=== PATIENT | female | born 1960 | race African-American/Black ===

== ENCOUNTER 2021-10-24 22:51 | Emergency (ER) | payer MEDICARE, MEDICAID ==
[~2021-10-24] VITALS: Ht 167.6 cm; Wt 105.0 kg
[~2021-10-24 22:51] MED LIST: ASCO100T2; CYAN1TAB43; DULO30CA2; FOLI-43; MULTIVITAMIN; PRAS25TA; PROT20
[2021-10-25] MEDS ORDERED: ONDANSETRON HCL 4MG/2ML INJ IV STA (05:58)
[2021-10-25] MEDS ORDERED: SODIUM CHLORIDE 0.9% 1,000 ML IV ONE (06:00)
[2021-10-25 06:13] LABS: CHLORIDE 96 mEq/L (98-107)
[2021-10-25 06:36] LABS: BASOPHILS % 0.4 % (0.0-2.0); HEMATOCRIT. 36.7 % (36.0-48.0); HEMOGLOBIN. 12.4 g/dL (12.0-16.0); LYMPHOCYTES % 12.3 % (20.0-50.0); MEAN CORPUSCULAR HEMOGLOBIN 35.9 pg (28.0-32.0); MEAN CORPUSCULAR VOLUME 106.1 fL (81.0-99.0); MEAN PLATELET VOLUME 9.2 fl (7.4-10.4); MONOCYTES % 11.2 % (2.0-8.0); NEUTROPHILS % 76.1 % (40.0-76.0); PLATELET 153 x1000/uL (130-400); RED BLOOD CELL COUNT 3.46 mill/uL (4.2-5.4); RED CELL DISTRIBUTION WIDTH 16.5 % (11.6-14.6)
[2021-10-25] MEDS ORDERED: POTASSIUM CHLORIDE 20MEQ TABLET SR PO ONE (08:15)
[2021-10-25] MEDS ORDERED: ONDA4TAB5 MT (08:18)
[2021-10-25 08:30] VITALS: BP 155/90
== END 2021-10-25 08:30 | disposition home or self-care (01) ==
LOC: ER 22:51
DX: R53.1 Weakness (principal); E87.6 Hypokalemia; R11.2 Nausea with vomiting, unspecified; I10 Essential (primary) hypertension; M19.90 Unspecified osteoarthritis, unspecified site; Z86.73 Personal history of transient ischemic attack (TIA), and cerebral infarction without residual deficits
CPT/HCPCS: 36415; 80053; 83690; 85025; 93005; 96361; 96374; 99284; J2405; J7030

== ENCOUNTER 2021-12-05 11:24 | Emergency (ER) | payer MEDICARE, MEDICAID ==
[~2021-12-05] VITALS: Ht 165.1 cm; Wt 73.0 kg
[~2021-12-05 11:24] MED LIST changes: +ONDA4TAB5 MT
[2021-12-05] MEDS ORDERED: SODIUM CHLORIDE 0.9% 1,000 ML IV ONE (11:45)
[2021-12-05 12:12] LABS: BASOPHILS % 1.2 % (0.0-2.0); EOSINOPHILS % 1.1 % (0.0-5.0); HEMATOCRIT. 33.9 % (36.0-48.0); HEMOGLOBIN. 11.7 g/dL (12.0-16.0); LYMPHOCYTES % 18.4 % (20.0-50.0); MEAN CORPUSCULAR HEMOGLOBIN 35.1 pg (28.0-32.0); MEAN CORPUSCULAR VOLUME 101.3 fL (81.0-99.0); MEAN PLATELET VOLUME 8.2 fl (7.4-10.4); MONOCYTES % 8.2 % (2.0-8.0); NEUTROPHILS % 71.1 % (40.0-76.0); PLATELET 279 x1000/uL (130-400); RED BLOOD CELL COUNT 3.35 mill/uL (4.2-5.4); RED CELL DISTRIBUTION WIDTH 14.9 % (11.6-14.6)
[2021-12-05 12:24] LABS: CHLORIDE 96 mEq/L (98-107)
[2021-12-05] MEDS ORDERED: POTASSIUM CHLORIDE INJ 40 MEQ in DEXT 5% WATER 250 ML IV ONE (13:00)
[2021-12-05] MEDS: KCL 20MEQ/100ML X 2 FOR TOTAL KCL 40MEQ/200ML IV SCH ×2 (14:19→16:09)
[2021-12-05 14:32] LABS: CLARITY URINE CLEAR (CLEAR); COLOR URINE YELLOW (YELLOW); KETONES URINE NEGATIVE (NEGATIVE); LEUKOCYTE ESTERASE URINE NEGATIVE (NEGATIVE); NITRITE URINE NEGATIVE (NEGATIVE); OCCULT BLOOD URINE NEGATIVE (NEGATIVE); PH URINE 6.5 (4.5-8.0); PROTEIN URINE NEGATIVE (NEGATIVE); SPECIFIC GRAVITY URINE 1.009 (1.005-1.030); UROBILINOGEN URINE 0.2 E.U./dL (0.2-1.0)
[2021-12-05] MEDS ORDERED: ONDA4TAB5 MT (15:29)
[2021-12-05 16:15] VITALS: BP 131/88
[2021-12-05] MEDS ORDERED: POTASSIUM-SODIUM PHOSPHATE POWDER PACKET PO ONE (16:30)
== END 2021-12-05 16:43 | disposition home or self-care (01) ==
LOC: ER 11:24
DX: E87.6 Hypokalemia (principal); I10 Essential (primary) hypertension; Z86.73 Personal history of transient ischemic attack (TIA), and cerebral infarction without residual deficits
CPT/HCPCS: 36415; 71045; 80053; 81003; 83735; 84484; 85025; 93005; 96361; 96365; 99285; J3480; J7030

== ENCOUNTER 2023-03-15 14:59 | Emergency (ER) | payer MEDICARE, OTHER ==
[~2023-03-15] VITALS: Ht 165.1 cm; Wt 99.8 kg
[2023-03-15] MEDS ORDERED: SODIUM CHLORIDE 0.9% 1,000 ML IV ONE (15:30)
[2023-03-15 16:26] LABS: BASOPHILS % 1.1 % (0.0-2.0); EOSINOPHILS % 1.9 % (0.0-5.0); HEMATOCRIT. 35.9 % (36.0-48.0); HEMOGLOBIN. 11.9 g/dL (12.0-16.0); LYMPHOCYTES % 27.3 % (20.0-50.0); MEAN CORPUSCULAR HEMOGLOBIN 34.2 pg (28.0-32.0); MEAN CORPUSCULAR VOLUME 103.3 fL (81.0-99.0); MEAN PLATELET VOLUME 8.7 fl (7.4-10.4); MONOCYTES % 11.1 % (2.0-8.0); NEUTROPHILS % 58.6 % (40.0-76.0); PLATELET 194 x1000/uL (130-400); RED BLOOD CELL COUNT 3.47 mill/uL (4.2-5.4); RED CELL DISTRIBUTION WIDTH 14.3 % (11.6-14.6)
[2023-03-15 16:35] LABS: CHLORIDE 105 mEq/L (98-107)
[2023-03-15] MEDS ORDERED: POTASSIUM CHLORIDE 20MEQ/PACKET PO ONE (17:00)
[2023-03-15] MEDS ORDERED: KCL 10MEQ/50ML PREMIX 50 ML IV ONE (17:00)
[2023-03-15 19:41] LABS: CHLORIDE 110 mEq/L (98-107)
[2023-03-15 20:39] VITALS: BP 104/62
== END 2023-03-15 20:39 | disposition home or self-care (01) ==
LOC: ER 14:59
DX: R53.1 Weakness (principal); R05.9 Cough, unspecified; E11.9 Type 2 diabetes mellitus without complications; E78.00 Pure hypercholesterolemia, unspecified; I10 Essential (primary) hypertension; Z86.73 Personal history of transient ischemic attack (TIA), and cerebral infarction without residual deficits
CPT/HCPCS: 36415; 71045; 80048; 80053; 83880; 84484; 85025; 93005; 96360; 96361; 99291; J3480; J7030

== ENCOUNTER 2023-07-22 10:15 | Inpatient (IN) | payer OTHER ==
[~2023-07-22] VITALS: Ht 167.6 cm; Wt 88.2 kg
[~2023-07-22 10:15] MED LIST changes: -ASCO100T2; -CYAN1TAB43; +DONE5TAB33 PO; -DULO30CA2; +DULO60CA64 PO; -FOLI-43; +FOLI-43 PO; +GABA800T97 PO; +METH2.5T PO; -MULTIVITAMIN; -ONDA4TAB5 MT; +POTA10CA83 PO; -PRAS25TA; -PROT20; +SERT-422 PO
[2023-07-22 10:21] VITALS: O2SAT 100
[2023-07-22 10:59] LABS: BASOPHILS % 0.1 % (0.0-2.0); DIFFERENTIAL COMMENT 0; EOSINOPHILS % 0.1 % (0.0-5.0); HEMATOCRIT. 34.9 % (36.0-48.0); HEMOGLOBIN. 11.7 g/dL (12.0-16.0); LYMPHOCYTES % 8.5 % (20.0-50.0); MEAN CORPUSCULAR HEMOGLOBIN 32.5 pg (28.0-32.0); MEAN CORPUSCULAR HGB CONC 33.4 g/dL (31.0-37.0); MEAN CORPUSCULAR VOLUME 97.3 fL (81.0-99.0); MEAN PLATELET VOLUME 8.6 fl (7.4-10.4); MONOCYTES % 6.7 % (2.0-8.0); NEUTROPHILS % 84.6 % (40.0-76.0); PLATELET 198 x1000/uL (130-400); RED BLOOD CELL COUNT 3.59 mill/uL (4.2-5.4); RED CELL DISTRIBUTION WIDTH 14.3 % (11.6-14.6); WHITE BLOOD COUNT 11.7 x1000/uL (4.5-11.0)
[2023-07-22 11:07] LABS: INR 1.1; PROTHROMBIN TIME 12.1 sec (9.6-11.0)
[2023-07-22] MEDS ORDERED: ASPIRIN 325MG EC TABLET PO ONE (12:45)
[2023-07-22 17:00] VITALS: BP 155/88; PULSE 94; RESP 18; TEMP 97.7
[2023-07-22 17:11] VITALS: BP 155/88; PULSE 94; RESP 18; TEMP 97.7
[2023-07-22 18:34] LABS: CHLORIDE 91 mEq/L (98-107); INDEX HEMOLYSI 1 (1-3); INDEX ICTERIC 1 (1-4); INDEX LIPEMIC 1 (1-3); POTASSIUM 3.7 mEq/L (3.5-5.1); SODIUM 127 mEq/L (136-145)
[2023-07-22 18:42] LABS: ALANINE AMINOTRANSFERASE 20 IU/L (13-61); ALBUMIN 2.8 g/dL (3.4-5.0); ASPARTATE AMINOTRANSFERASE 26 IU/L (15-37); BILIRUBIN TOTAL 0.7 mg/dL (0.1-1.0); CALCIUM 8.7 mg/dL (8.5-10.1); CARBON DIOXIDE 19 mEq/L (21-32); CREATININE 0.5 mg/dL (0.6-1.3); ETHANOL BLOOD < 10 mg/dL (<10); GLUCOSE 72 mg/dL (70-105); PROTEIN TOTAL 7.7 g/dL (6.0-8.3); TROPONIN I HIGH SENSITIVITY 20 ng/L (<54); UREA NITROGEN BLOOD 16 mg/dL (7-21)
[2023-07-22 18:48] LABS: CLARITY URINE CLEAR (CLEAR); COLOR URINE DARK YELLOW (YELLOW); GLUCOSE URINE NEGATIVE (NEGATIVE); KETONES URINE TRACE (NEGATIVE); LEUKOCYTE ESTERASE URINE TRACE (NEGATIVE); NITRITE URINE NEGATIVE (NEGATIVE); OCCULT BLOOD URINE NEGATIVE (NEGATIVE); PROTEIN URINE TRACE (NEGATIVE); SPECIFIC GRAVITY URINE 1.027 (1.005-1.030)
[2023-07-22 18:51] LABS: SQUAMOUS EPITHELIAL CELL URINE NONE SEEN /lpf (RARE/1+); YEAST URINE NONE SEEN
[2023-07-22 19:03] LABS: WBC URINE 0-2 /hpf (0-2)
[2023-07-22 19:04] LABS: BACTERIA URINE TRACE
[2023-07-22 19:32] LABS: *AMPHETAMINES SCREEN URINE NEGATIVE (NEGATIVE); *BARBITURATES SCREEN URINE NEGATIVE (NEGATIVE); *BENZODIAZEPINES SCREEN URINE NEGATIVE (NEGATIVE); *COCAINE SCREEN URINE NEGATIVE (NEGATIVE); CANNABINOID URINE SCREEN NEGATIVE (NEGATIVE); ECSTASY MDMA SCREEN URINE NEGATIVE (NEGATIVE); OPIATES URINE SCREEN PRESUMTIVE POSITIVE (NEGATIVE); PHENCYCLIDINE URINE SCREEN NEGATIVE (NEGATIVE)
[2023-07-22 20:00] VITALS: BP 169/87; PULSE 94; RESP 20; TEMP 97.2
[2023-07-22] MEDS ORDERED: LORAZEPAM 2MG/ML CPJ IV NR (21:30)
[2023-07-22] MEDS ORDERED: *PATIENT'S OWN MEDICATION STORAGE XX SCH (23:45)
[2023-07-23] VITALS: BP 146/88; PULSE 101; RESP 18; TEMP 96.8
[2023-07-23 04:00] VITALS: BP 151/82; PULSE 99; RESP 17; TEMP 97
[2023-07-23] MEDS ORDERED: CLONIDINE 0.1MG TABLET PO PRN (10:30)
[2023-07-23] MEDS ORDERED: SODIUM CHLORIDE 0.9% 1,000 ML IV SCH (10:30)
[2023-07-23] MEDS ORDERED: ASPIRIN 81MG TABLET PO SCH (10:30)
[2023-07-23] MEDS ORDERED: ACETAMINOPHEN 325MG TABLET PO PRN (10:30)
[2023-07-23] MEDS: ASPIRIN 81MG TABLET PO SCH (10:46)
[2023-07-23] MEDS: CLOPIDOGREL 75MG TABLET PO SCH (10:46)
[2023-07-23] MEDS: AMLODIPINE 5MG TABLET PO SCH (10:46)
[2023-07-23 12:00] VITALS: BP 162/94; PULSE 91; RESP 20; TEMP 98.1
[2023-07-23 12:05] LABS: CHLORIDE 90 mEq/L (98-107); INDEX HEMOLYSI 1 (1-3); INDEX ICTERIC 1 (1-4); INDEX LIPEMIC 1 (1-3); POTASSIUM 3.6 mEq/L (3.5-5.1); SODIUM 129 mEq/L (136-145)
[2023-07-23 12:14] LABS: CALCIUM 8.7 mg/dL (8.5-10.1); CARBON DIOXIDE 27 mEq/L (21-32); CHOLESTEROL 146 mg/dL (<200); CREATININE 0.4 mg/dL (0.6-1.3); GLUCOSE 90 mg/dL (70-105); HDL CHOLESTEROL 50 mg/dL (40-59); LDL CHOLESTEROL 82 mg/dL (5-100); TRIGLYCERIDE 128 mg/dL (0-150); UREA NITROGEN BLOOD 14 mg/dL (7-21)
[2023-07-23 16:00] VITALS: BP 119/93; PULSE 90; RESP 19; TEMP 97.4
[2023-07-23 16:53] LABS: CREATINE KINASE MB FRACTION 2.9 ng/mL (0.5-3.6)
[2023-07-23] MEDS ORDERED: DEXTROSE 50% WATER 50ML SYRINGE IV PRN ×2 (18:15→18:45)
[2023-07-23 20:00] VITALS: BP 118/79; PULSE 94; RESP 18; TEMP 96.7
[2023-07-23] MEDS: BLOOD SUGAR DIAGNOSTIC STRIP TEST SCH (21:16)
[2023-07-24] VITALS: BP 133/74; PULSE 94; RESP 18; TEMP 96
[2023-07-24] MEDS: BLOOD SUGAR DIAGNOSTIC STRIP TEST SCH ×4 (06:52→21:10)
[2023-07-24 08:00] VITALS: BP 140/89; PULSE 95; RESP 18; TEMP 97.9
[2023-07-24 08:42] LABS: CHLORIDE 90 mEq/L (98-107); INDEX HEMOLYSI 1 (1-3); INDEX ICTERIC 1 (1-4); INDEX LIPEMIC 1 (1-3); POTASSIUM 3.4 mEq/L (3.5-5.1); SODIUM 128 mEq/L (136-145)
[2023-07-24 08:54] LABS: CALCIUM 9.1 mg/dL (8.5-10.1); CARBON DIOXIDE 28 mEq/L (21-32); CHOLESTEROL 155 mg/dL (<200); CREATINE KINASE 310 IU/L (26-192); CREATINE KINASE MB FRACTION 5.7 ng/mL (0.5-3.6); CREATININE 0.4 mg/dL (0.6-1.3); GLUCOSE 85 mg/dL (70-105); HDL CHOLESTEROL 52 mg/dL (40-59); LDL CHOLESTEROL 79 mg/dL (5-100); TRIGLYCERIDE 141 mg/dL (0-150); TROPONIN I HIGH SENSITIVITY 20 ng/L (<54); UREA NITROGEN BLOOD 19 mg/dL (7-21)
[2023-07-24] MEDS: ASPIRIN 81MG TABLET PO SCH (09:35)
[2023-07-24] MEDS: CLOPIDOGREL 75MG TABLET PO SCH (09:35)
[2023-07-24] MEDS: AMLODIPINE 5MG TABLET PO SCH (09:36)
[2023-07-24] MEDS ORDERED: POTASSIUM CHLORIDE 20MEQ TABLET SR PO NR (11:00)
[2023-07-24 12:00] VITALS: BP 125/77; PULSE 92; RESP 19; TEMP 97.4
[2023-07-24 15:33] LABS: PHOSPHORUS 3.1 mg/dL (2.5-4.9)
[2023-07-24] MEDS: ACETAMINOPHEN 325MG TABLET PO PRN (15:59)
[2023-07-24 20:00] VITALS: BP 127/81; PULSE 104; RESP 19; TEMP 99
[2023-07-25] VITALS: BP 122/80; PULSE 104; RESP 20; TEMP 98.1
[2023-07-25] MEDS: ONDANSETRON HCL 4MG/2ML INJ IV PRN (00:55)
[2023-07-25 04:00] VITALS: BP 136/83; PULSE 99; RESP 20; TEMP 97.9
[2023-07-25] MEDS: BLOOD SUGAR DIAGNOSTIC STRIP TEST SCH ×4 (06:12→21:00)
[2023-07-25 07:44] LABS: HEMATOCRIT. 33.6 % (36.0-48.0); HEMOGLOBIN. 11.2 g/dL (12.0-16.0); MEAN CORPUSCULAR HEMOGLOBIN 32.4 pg (28.0-32.0); MEAN CORPUSCULAR HGB CONC 33.4 g/dL (31.0-37.0); MEAN CORPUSCULAR VOLUME 96.9 fL (81.0-99.0); MEAN PLATELET VOLUME 9.8 fl (7.4-10.4); PLATELET 174 x1000/uL (130-400); RED BLOOD CELL COUNT 3.46 mill/uL (4.2-5.4); RED CELL DISTRIBUTION WIDTH 14.5 % (11.6-14.6); WHITE BLOOD COUNT 14.2 x1000/uL (4.5-11.0)
[2023-07-25 08:07] LABS: DIFFERENTIAL COMMENT 1
[2023-07-25 08:31] VITALS: BP 104/74; PULSE 99; RESP 20; TEMP 99.2
[2023-07-25] MEDS: ASPIRIN 81MG TABLET PO SCH (08:33)
[2023-07-25] MEDS: CLOPIDOGREL 75MG TABLET PO SCH (08:33)
[2023-07-25] MEDS: AMLODIPINE 5MG TABLET PO SCH (08:33)
[2023-07-25] MEDS: ACETAMINOPHEN 325MG TABLET PO PRN (09:18)
[2023-07-25 09:38] LABS: CHLORIDE 93 mEq/L (98-107); INDEX HEMOLYSI 1 (1-3); INDEX ICTERIC 1 (1-4); INDEX LIPEMIC 1 (1-3); POTASSIUM 3.3 mEq/L (3.5-5.1); SODIUM 132 mEq/L (136-145)
[2023-07-25 09:59] LABS: CALCIUM 9.2 mg/dL (8.5-10.1); CARBON DIOXIDE 26 mEq/L (21-32); CREATININE 0.5 mg/dL (0.6-1.3); GLUCOSE 87 mg/dL (70-105); UREA NITROGEN BLOOD 24 mg/dL (7-21)
[2023-07-25] MEDS ORDERED: POTASSIUM CHLORIDE 20MEQ/PACKET PO NR (10:30)
[2023-07-25 10:53] LABS: PHOSPHORUS 2.5 mg/dL (2.5-4.9)
[2023-07-25 12:00] VITALS: BP 128/80; PULSE 100; RESP 20; TEMP 98
[2023-07-25] MEDS ORDERED: MENTHOL/LANOLIN/CALAMINE/ZN OX OINT 71GM TOP PRN (12:30)
[2023-07-25] MEDS: NYSTATIN POWDER 15GM TOP SCH ×2 (13:00→16:10)
[2023-07-25 14:38] LABS: NUCLEATED RED BLOOD CELLS 1 /100 WBC
[2023-07-25 14:39] LABS: PLATELET ESTIMATE NORMAL; TOXIC VACUOLATION FEW
[2023-07-25] MEDS ORDERED: MAGNESIUM 2 G PREMIX 50 ML IV NR (15:30)
[2023-07-25 15:51] VITALS: BP_SYST 124; BP_SYST 134; BP_DIAS 60; BP_DIAS 73; PULSE 70; PULSE 96; RESP 20; TEMP 97.8
[2023-07-25 18:18] LABS: INDEX HEMOLYSI 1 (1-3)
[2023-07-25 18:28] LABS: AMMONIA <10 uMol/L (<32)
[2023-07-25 20:00] VITALS: BP 154/94; PULSE 112; RESP 19; TEMP 97.9
[2023-07-25] MEDS ORDERED: VANCOMYCIN 1500MG in DEXTROSE 5% WATER 250ML IV NR (23:30)
[2023-07-26] VITALS (8 sets, daily range): BP systolic 94–134; BP diastolic 64–88; PULSE 89–106; RESP 18–31; TEMP 97.3–101
[2023-07-26] MEDS: PIPERACILLIN/TAZOBACTAM 3.375 G in DEXTROSE 5% WATER 50 ML IV SCH ×4 (00:18→21:50)
[2023-07-26] MEDS: BLOOD SUGAR DIAGNOSTIC STRIP TEST SCH ×5 (06:31→20:24)
[2023-07-26 06:41] LABS: BASOPHILS % 0.1 % (0.0-2.0); HEMATOCRIT. 30.2 % (36.0-48.0); HEMOGLOBIN. 10.2 g/dL (12.0-16.0); LYMPHOCYTES % 7.6 % (20.0-50.0); MEAN CORPUSCULAR HEMOGLOBIN 33.2 pg (28.0-32.0); MEAN CORPUSCULAR HGB CONC 33.9 g/dL (31.0-37.0); MEAN CORPUSCULAR VOLUME 97.9 fL (81.0-99.0); MEAN PLATELET VOLUME 9.2 fl (7.4-10.4); MONOCYTES % 7.4 % (2.0-8.0); NEUTROPHILS % 84.9 % (40.0-76.0); PLATELET 140 x1000/uL (130-400); RED BLOOD CELL COUNT 3.09 mill/uL (4.2-5.4); RED CELL DISTRIBUTION WIDTH 14.5 % (11.6-14.6)
[2023-07-26] MEDS: AMLODIPINE 5MG TABLET PO SCH (09:00)
[2023-07-26] MEDS: CLOPIDOGREL 75MG TABLET PO SCH (09:04)
[2023-07-26] MEDS: ASPIRIN 81MG TABLET PO SCH (09:04)
[2023-07-26] MEDS: NYSTATIN POWDER 15GM TOP SCH ×3 (09:05→17:38)
[2023-07-26] MEDS ORDERED: VANCOMYCIN 750MG PREMIX 150 ML IV SCH ×2 (09:15→15:00)
[2023-07-26] MEDS: ONDANSETRON HCL 4MG/2ML INJ IV PRN (09:16)
[2023-07-26 09:24] LABS: CHLORIDE 97 mEq/L (98-107); INDEX HEMOLYSI 1 (1-3); INDEX ICTERIC 1 (1-4); INDEX LIPEMIC 1 (1-3); SODIUM 136 mEq/L (136-145)
[2023-07-26 09:36] LABS: ALANINE AMINOTRANSFERASE 18 IU/L (13-61); ALBUMIN 2.6 g/dL (3.4-5.0); ASPARTATE AMINOTRANSFERASE 19 IU/L (15-37); BILIRUBIN DIRECT 0.4 mg/dL (0.0-0.2); BILIRUBIN TOTAL 1.1 mg/dL (0.1-1.0); CALCIUM 8.9 mg/dL (8.5-10.1); CARBON DIOXIDE 29 mEq/L (21-32); CREATININE 0.6 mg/dL (0.6-1.3); GLUCOSE 107 mg/dL (70-105); PROTEIN TOTAL 7.4 g/dL (6.0-8.3); UREA NITROGEN BLOOD 22 mg/dL (7-21)
[2023-07-26] MEDS: VANCOMYCIN 750MG PREMIX 150 ML IV SCH (13:42)
[2023-07-26] MEDS ORDERED: POTASSIUM CHLORIDE INJ 40 MEQ in DEXT 5% WATER 250 ML IV ONE (16:15)
[2023-07-26] MEDS: KCL 20MEQ/100ML X 2 FOR TOTAL KCL 40MEQ/200ML IV SCH ×2 (18:00→20:26)
[2023-07-26] MEDS: DEXT 5%/0.45% NACL KCL 20MEQ/L 1,000 ML IV SCH (21:51)
[2023-07-27] VITALS (13 sets, daily range): BP systolic 103–134; BP diastolic 66–75; PULSE 93–110; RESP 17–31; TEMP 96.7–99.3
[2023-07-27] MEDS: VANCOMYCIN 750MG PREMIX 150 ML IV SCH (00:33)
[2023-07-27] MEDS: PIPERACILLIN/TAZOBACTAM 3.375 G in DEXTROSE 5% WATER 50 ML IV SCH ×3 (05:16→21:21)
[2023-07-27 06:31] LABS: BASOPHILS % 0.2 % (0.0-2.0); DIFFERENTIAL COMMENT 0; EOSINOPHILS % 0.1 % (0.0-5.0); HEMATOCRIT. 29.5 % (36.0-48.0); LYMPHOCYTES % 8.3 % (20.0-50.0); MEAN CORPUSCULAR HEMOGLOBIN 33.2 pg (28.0-32.0); MEAN CORPUSCULAR HGB CONC 34.1 g/dL (31.0-37.0); MEAN CORPUSCULAR VOLUME 97.6 fL (81.0-99.0); MEAN PLATELET VOLUME 9.4 fl (7.4-10.4); MONOCYTES % 8.2 % (2.0-8.0); NEUTROPHILS % 83.2 % (40.0-76.0); PLATELET 98 x1000/uL (130-400); RED BLOOD CELL COUNT 3.02 mill/uL (4.2-5.4); RED CELL DISTRIBUTION WIDTH 14.7 % (11.6-14.6); WHITE BLOOD COUNT 12.7 x1000/uL (4.5-11.0)
[2023-07-27 06:39] LABS: POTASSIUM 3.3 mEq/L (3.5-5.1)
[2023-07-27 06:47] LABS: ALBUMIN 2.4 g/dL (3.4-5.0); BILIRUBIN DIRECT 0.3 mg/dL (0.0-0.2); BILIRUBIN TOTAL 0.8 mg/dL (0.1-1.0); CALCIUM 9.3 mg/dL (8.5-10.1); CREATININE 1.2 mg/dL (0.6-1.3); PROTEIN TOTAL 6.9 g/dL (6.0-8.3)
[2023-07-27] MEDS: BLOOD SUGAR DIAGNOSTIC STRIP TEST SCH ×4 (07:30→21:00)
[2023-07-27] MEDS: DEXT 5%/0.45% NACL KCL 20MEQ/L 1,000 ML IV SCH ×2 (08:29→20:29)
[2023-07-27] MEDS: NYSTATIN POWDER 15GM TOP SCH ×3 (08:31→17:00)
[2023-07-27] MEDS: SERTRALINE HCL 50MG TABLET PO SCH (08:56)
[2023-07-27] MEDS ORDERED: POTASSIUM CHLORIDE INJ 40 MEQ in DEXT 5% WATER 250 ML IV ONE (11:15)
[2023-07-27] MEDS: KCL 20MEQ/100ML X 2 FOR TOTAL KCL 40MEQ/200ML IV SCH ×2 (13:52→16:25)
[2023-07-27] MEDS ORDERED: NALOXONE HCL 0.4MG/ML VIAL IV PRN (14:45)
[2023-07-27] MEDS: MORPHINE SULFATE 2 MG/ML CPJ (NOT FOR IM USE) IV PRN (16:06)
[2023-07-27] MEDS: ONDANSETRON HCL 4MG/2ML INJ IV PRN (17:06)
[2023-07-28] VITALS (10 sets, daily range): BP systolic 100–131; BP diastolic 60–110; PULSE 94–112; RESP 18–26; TEMP 97–101.1
[2023-07-28] MEDS: ONDANSETRON HCL 4MG/2ML INJ IV PRN ×2 (02:34→09:51)
[2023-07-28] MEDS: MORPHINE SULFATE 2 MG/ML CPJ (NOT FOR IM USE) IV PRN (02:35)
[2023-07-28] MEDS: PIPERACILLIN/TAZOBACTAM 3.375 G in DEXTROSE 5% WATER 50 ML IV SCH ×3 (05:25→21:03)
[2023-07-28 06:05] LABS: HEMATOCRIT. 31.8 % (36.0-48.0); HEMOGLOBIN. 10.2 g/dL (12.0-16.0); MEAN CORPUSCULAR HEMOGLOBIN 31.8 pg (28.0-32.0); MEAN CORPUSCULAR HGB CONC 32.1 g/dL (31.0-37.0); MEAN CORPUSCULAR VOLUME 98.8 fL (81.0-99.0); MEAN PLATELET VOLUME 9.7 fl (7.4-10.4); PLATELET 85 x1000/uL (130-400); RED BLOOD CELL COUNT 3.22 mill/uL (4.2-5.4); RED CELL DISTRIBUTION WIDTH 14.7 % (11.6-14.6); WHITE BLOOD COUNT 31.2 x1000/uL (4.5-11.0)
[2023-07-28 06:06] LABS: DIFFERENTIAL COMMENT 1
[2023-07-28 07:07] LABS: POTASSIUM 4.1 mEq/L (3.5-5.1)
[2023-07-28 07:19] LABS: ALBUMIN 2.2 g/dL (3.4-5.0); BILIRUBIN DIRECT 0.4 mg/dL (0.0-0.2); BILIRUBIN TOTAL 1.2 mg/dL (0.1-1.0); CALCIUM 9.6 mg/dL (8.5-10.1); CREATININE 1.7 mg/dL (0.6-1.3); PROTEIN TOTAL 6.9 g/dL (6.0-8.3)
[2023-07-28] MEDS: BLOOD SUGAR DIAGNOSTIC STRIP TEST SCH ×4 (08:16→20:20)
[2023-07-28] MEDS: QUETIAPINE FUMARATE 25MG TABLET PO SCH (08:18)
[2023-07-28] MEDS: SERTRALINE HCL 50MG TABLET PO SCH (08:18)
[2023-07-28] MEDS: DEXT 5%/0.45% NACL KCL 20MEQ/L 1,000 ML IV SCH ×2 (09:46→22:00)
[2023-07-28] MEDS: NYSTATIN POWDER 15GM TOP SCH ×3 (09:47→17:20)
[2023-07-28 10:54] LABS: PLATELET ESTIMATE DECREASED
[2023-07-28 11:38] LABS: BG BASE EXCESS 1.2 mmol/L (-2.0-2.0); BG CARBOXYHEMOGLOBIN 0.3 % (0.5-1.5); BG DEOXYHEMOGLOBIN 6.4 % (0.0-5.0); BG FRACTION INSPIRED OXYGEN 28; BG HCO3 ACT 23.4 mmol/L (22.0-26.0); BG METHEMOGLOBIN 0.7 % (0.0-1.5); BG OXYGEN SATURATION 93.5 % (92.0-98.5); BG OXYHEMOGLOBIN 92.6 % (94.0-97.0); BG PCO2 29.3 mmHg (35.0-45.0); BG PO2 70.2 mmHg (75.0-100.0); BG SAMPLE SITE RIGHT RADIAL; BG TOTAL HEMOGLOBIN 10.8 g/dL (12.0-18.0); BG VENT MODE NASAL CANNULA
[2023-07-28] MEDS ORDERED: ACETAMINOPHEN 650MG SUPP RC PRN ×2 (15:45→16:15)
[2023-07-29] VITALS (9 sets, daily range): BP systolic 92–118; BP diastolic 60–94; PULSE 78–105; RESP 17–27; TEMP 97.4–99.4
[2023-07-29] MEDS ORDERED: VANCOMYCIN 750MG PREMIX 150 ML IV SCH (02:30)
[2023-07-29] MEDS ORDERED: MEROPENEM 500 MG in SODIUM CHLORIDE 0.9% 50 ML IV SCH (04:30)
[2023-07-29] MEDS: BLOOD SUGAR DIAGNOSTIC STRIP TEST SCH ×4 (07:22→21:59)
[2023-07-29] MEDS ORDERED: FUROSEMIDE 40MG/4ML VIAL IVP NR (08:15)
[2023-07-29] MEDS ORDERED: DIATR MEGLU/DIATRIZOATE SOLN 120ML ONE (08:43)
[2023-07-29] MEDS: SERTRALINE HCL 50MG TABLET PO SCH (09:00)
[2023-07-29] MEDS: NYSTATIN POWDER 15GM TOP SCH ×3 (09:00→17:43)
[2023-07-29 12:42] LABS: BG BASE EXCESS 1.4 mmol/L (-2.0-2.0); BG CARBOXYHEMOGLOBIN 0.3 % (0.5-1.5); BG DEOXYHEMOGLOBIN 5.1 % (0.0-5.0); BG FRACTION INSPIRED OXYGEN 28; BG HCO3 ACT 23.8 mmol/L (22.0-26.0); BG METHEMOGLOBIN 0.7 % (0.0-1.5); BG OXYGEN SATURATION 94.8 % (92.0-98.5); BG OXYHEMOGLOBIN 93.9 % (94.0-97.0); BG PCO2 29.9 mmHg (35.0-45.0); BG PH 7.518 (7.350-7.450); BG PO2 78.4 mmHg (75.0-100.0); BG SAMPLE SITE RIGHT RADIAL; BG TOTAL HEMOGLOBIN 10.3 g/dL (12.0-18.0); BG VENT MODE NASAL CANNULA
[2023-07-29] MEDS: DEXT 5%/0.45% NACL KCL 20MEQ/L 1,000 ML IV SCH ×2 (12:54→22:08)
[2023-07-29] MEDS: MEROPENEM 1000MG in NORMAL SALINE 100ML IV SCH ×2 (12:56→22:08)
[2023-07-29 13:14] LABS: HEMATOCRIT. 28.4 % (36.0-48.0); HEMOGLOBIN. 9.3 g/dL (12.0-16.0); MEAN CORPUSCULAR HEMOGLOBIN 32.4 pg (28.0-32.0); MEAN CORPUSCULAR HGB CONC 32.8 g/dL (31.0-37.0); MEAN CORPUSCULAR VOLUME 98.8 fL (81.0-99.0); MEAN PLATELET VOLUME 9.9 fl (7.4-10.4); PLATELET 94 x1000/uL (130-400); RED BLOOD CELL COUNT 2.88 mill/uL (4.2-5.4); RED CELL DISTRIBUTION WIDTH 14.6 % (11.6-14.6); WHITE BLOOD COUNT 16.3 x1000/uL (4.5-11.0)
[2023-07-29 13:20] LABS: DIFFERENTIAL COMMENT 1
[2023-07-29 13:57] LABS: POTASSIUM 3.3 mEq/L (3.5-5.1)
[2023-07-29 14:20] LABS: ALBUMIN 2.2 g/dL (3.4-5.0); BILIRUBIN DIRECT 0.2 mg/dL (0.0-0.2); BILIRUBIN TOTAL 0.5 mg/dL (0.1-1.0); CALCIUM 9.7 mg/dL (8.5-10.1); CREATININE 1.5 mg/dL (0.6-1.3); PROTEIN TOTAL 6.9 g/dL (6.0-8.3)
[2023-07-29 17:32] LABS: PLATELET ESTIMATE DECREASED
[2023-07-29] MEDS: QUETIAPINE FUMARATE 25MG TABLET PO SCH (20:02)
[2023-07-30] VITALS (30 sets, daily range): BP systolic 80–128; BP diastolic 55–84; PULSE 72–97; RESP 13–24; TEMP 97.6–98.2
[2023-07-30] MEDS: VANCOMYCIN 500MG PREMIX 100 ML IV SCH (05:36)
[2023-07-30 06:06] LABS: HEMATOCRIT. 31.5 % (36.0-48.0); MEAN CORPUSCULAR HEMOGLOBIN 32.2 pg (28.0-32.0); MEAN CORPUSCULAR HGB CONC 31.8 g/dL (31.0-37.0); MEAN CORPUSCULAR VOLUME 101.2 fL (81.0-99.0); MEAN PLATELET VOLUME 10.1 fl (7.4-10.4); PLATELET 100 x1000/uL (130-400); RED BLOOD CELL COUNT 3.11 mill/uL (4.2-5.4); RED CELL DISTRIBUTION WIDTH 14.5 % (11.6-14.6); WHITE BLOOD COUNT 17.1 x1000/uL (4.5-11.0)
[2023-07-30 06:27] LABS: DIFFERENTIAL COMMENT 1
[2023-07-30] MEDS: BLOOD SUGAR DIAGNOSTIC STRIP TEST SCH ×5 (07:30→21:00)
[2023-07-30] MEDS: QUETIAPINE FUMARATE 25MG TABLET PO SCH ×2 (09:00→21:00)
[2023-07-30] MEDS: SERTRALINE HCL 50MG TABLET PO SCH (09:00)
[2023-07-30 09:02] LABS: POTASSIUM 2.9 mEq/L (3.5-5.1)
[2023-07-30 09:14] LABS: CALCIUM 9.7 mg/dL (8.5-10.1); CREATININE 1.5 mg/dL (0.6-1.3)
[2023-07-30] MEDS: MEROPENEM 1000MG in NORMAL SALINE 100ML IV SCH ×2 (09:20→22:13)
[2023-07-30] MEDS: NYSTATIN POWDER 15GM TOP SCH ×3 (09:21→16:59)
[2023-07-30] MEDS ORDERED: POTASSIUM CHLORIDE 20MEQ/PACKET PO NR (10:00)
[2023-07-30] MEDS ORDERED: LEVETIRACETAM 500 MG in SODIUM CHLORIDE 0.9% 100 ML IV SCH (11:45)
[2023-07-30] MEDS: DEXT 5%/0.45% NACL KCL 20MEQ/L 1,000 ML IV SCH (11:59)
[2023-07-30 12:00] LABS: BG BASE EXCESS 2.4 mmol/L (-2.0-2.0); BG CARBOXYHEMOGLOBIN 0.2 % (0.5-1.5); BG DEOXYHEMOGLOBIN 6.3 % (0.0-5.0); BG FRACTION INSPIRED OXYGEN 21; BG HCO3 ACT 25.7 mmol/L (22.0-26.0); BG OXYGEN SATURATION 93.6 % (92.0-98.5); BG OXYHEMOGLOBIN 92.5 % (94.0-97.0); BG PCO2 34.9 mmHg (35.0-45.0); BG PH 7.485 (7.350-7.450); BG SAMPLE SITE LEFT RADIAL; BG TOTAL HEMOGLOBIN 10.4 g/dL (12.0-18.0); BG VENT MODE ROOM AIR
[2023-07-30] MEDS: LEVETIRACETAM 500MG PREMIX 100 ML IV SCH (12:05)
[2023-07-30 14:18] LABS: ATYPICAL LYMPHOCYTES 1; PLATELET ESTIMATE SLIGHTLY DECREASED
[2023-07-30] MEDS: METHYLPREDNISOLONE SOD SUCC 40MG/ML (ACT-O-VIAL) IV SCH ×2 (15:21→22:14)
[2023-07-30 15:39] LABS: LACTIC ACID 3.3 mmol/L (0.4-2.0)
[2023-07-30] MEDS: METOCLOPRAMIDE HCL 10MG/2ML VIAL IV SCH (17:10)
[2023-07-30 20:20] LABS: BG BASE EXCESS 1.1 mmol/L (-2.0-2.0); BG CARBOXYHEMOGLOBIN 0.2 % (0.5-1.5); BG DEOXYHEMOGLOBIN 3.7 % (0.0-5.0); BG FRACTION INSPIRED OXYGEN 28; BG HCO3 ACT 24.8 mmol/L (22.0-26.0); BG METHEMOGLOBIN 0.9 % (0.0-1.5); BG OXYGEN SATURATION 96.3 % (92.0-98.5); BG OXYHEMOGLOBIN 95.2 % (94.0-97.0); BG PCO2 35.6 mmHg (35.0-45.0); BG PO2 93.4 mmHg (75.0-100.0); BG SAMPLE SITE RIGHT RADIAL; BG TOTAL HEMOGLOBIN 10.7 g/dL (12.0-18.0); BG VENT MODE NASAL CANNULA
[2023-07-30 21:43] LABS: INDEX HEMOLYSI 1 (1-3)
[2023-07-30 21:55] LABS: AMMONIA < 10 uMol/L (<32)
[2023-07-31] VITALS (80 sets, daily range): BP systolic 70–172; BP diastolic 28–150; PULSE 75–122; RESP 14–27; TEMP 97.9–98.3
[2023-07-31] MEDS: LEVETIRACETAM 500MG PREMIX 100 ML IV SCH ×3 (00:07→22:25)
[2023-07-31] MEDS: DEXT 5%/0.45% NACL KCL 20MEQ/L 1,000 ML IV SCH ×2 (00:08→08:14)
[2023-07-31] MEDS: METOCLOPRAMIDE HCL 10MG/2ML VIAL IV SCH ×4 (00:14→17:56)
[2023-07-31] MEDS ORDERED: BISACODYL 10MG SUPP PR SCH (00:45)
[2023-07-31] MEDS: VANCOMYCIN 500MG PREMIX 100 ML IV SCH (05:54)
[2023-07-31 06:36] LABS: CHLORIDE 118 mEq/L (98-107); INDEX HEMOLYSI 3 (1-3); INDEX ICTERIC 1 (1-4); INDEX LIPEMIC 1 (1-3); POTASSIUM 4.3 mEq/L (3.5-5.1); SODIUM 148 mEq/L (136-145)
[2023-07-31 06:44] LABS: CALCIUM 9.1 mg/dL (8.5-10.1); CARBON DIOXIDE 20 mEq/L (21-32); CREATININE 1.1 mg/dL (0.6-1.3); GLUCOSE 130 mg/dL (70-105); UREA NITROGEN BLOOD 28 mg/dL (7-21)
[2023-07-31 07:53] LABS: CLARITY URINE CLEAR (CLEAR); COLOR URINE YELLOW (YELLOW); GLUCOSE URINE NEGATIVE (NEGATIVE); KETONES URINE TRACE (NEGATIVE); LEUKOCYTE ESTERASE URINE NEGATIVE (NEGATIVE); NITRITE URINE NEGATIVE (NEGATIVE); OCCULT BLOOD URINE NEGATIVE (NEGATIVE); PROTEIN URINE 1+ (NEGATIVE); UROBILINOGEN URINE 0.2 E.U./dL (0.2-1.0)
[2023-07-31] MEDS: MEROPENEM 1000MG in NORMAL SALINE 100ML IV SCH ×3 (08:14→22:31)
[2023-07-31] MEDS: BLOOD SUGAR DIAGNOSTIC STRIP TEST SCH ×3 (08:14→17:35)
[2023-07-31] MEDS: METHYLPREDNISOLONE SOD SUCC 40MG/ML (ACT-O-VIAL) IV SCH ×2 (08:14→22:30)
[2023-07-31] MEDS: NYSTATIN POWDER 15GM TOP SCH ×3 (08:17→17:54)
[2023-07-31 08:18] LABS: BACTERIA URINE 1+; RBC URINE NONE SEEN /hpf (0-2); SQUAMOUS EPITHELIAL CELL URINE NONE SEEN /lpf (RARE/1+); YEAST URINE NONE SEEN
[2023-07-31] MEDS: DEXT 5% WATER + KCL 20MEQ/L 1,000 ML IV SCH ×2 (10:30→23:56)
[2023-07-31 11:04] LABS: BG BASE EXCESS -1.8 mmol/L (-2.0-2.0); BG CARBOXYHEMOGLOBIN 0.2 % (0.5-1.5); BG FRACTION INSPIRED OXYGEN 28; BG HCO3 ACT 22.1 mmol/L (22.0-26.0); BG METHEMOGLOBIN 1.1 % (0.0-1.5); BG OXYHEMOGLOBIN 96.7 % (94.0-97.0); BG PCO2 34.2 mmHg (35.0-45.0); BG PH 7.429 (7.350-7.450); BG SAMPLE SITE RIGHT RADIAL; BG TOTAL HEMOGLOBIN 9.7 g/dL (12.0-18.0); BG VENT MODE NASAL CANNULA
[2023-07-31 12:41] LABS: HEMATOCRIT. 27.5 % (36.0-48.0); HEMOGLOBIN. 8.8 g/dL (12.0-16.0); MEAN CORPUSCULAR HEMOGLOBIN 32.2 pg (28.0-32.0); MEAN CORPUSCULAR HGB CONC 31.9 g/dL (31.0-37.0); MEAN CORPUSCULAR VOLUME 100.8 fL (81.0-99.0); MEAN PLATELET VOLUME 9.7 fl (7.4-10.4); PLATELET 148 x1000/uL (130-400); RED BLOOD CELL COUNT 2.73 mill/uL (4.2-5.4); RED CELL DISTRIBUTION WIDTH 14.6 % (11.6-14.6); WHITE BLOOD COUNT 16.7 x1000/uL (4.5-11.0)
[2023-07-31 12:45] LABS: DIFFERENTIAL COMMENT 1
[2023-07-31 15:35] LABS: NUCLEATED RED BLOOD CELLS 1 /100 WBC
[2023-07-31 15:36] LABS: PLATELET ESTIMATE NORMAL
[2023-07-31] MEDS ORDERED: VANCOMYCIN 750MG PREMIX 150 ML IV SCH (18:00)
[2023-08-01] VITALS (106 sets, daily range): BP systolic 47–185; BP diastolic 35–128; PULSE 85–114; RESP 0–32; TEMP 97.8–98.6
[2023-08-01] MEDS: BLOOD SUGAR DIAGNOSTIC STRIP TEST SCH ×4 (00:21→17:44)
[2023-08-01] MEDS: ACETYLCYSTEINE 100MG/ML 10% VIAL 4ML INH SCH (00:22)
[2023-08-01] MEDS: METOCLOPRAMIDE HCL 10MG/2ML VIAL IV SCH ×4 (00:30→17:43)
[2023-08-01 01:36] LABS: BG BASE EXCESS -3.1 mmol/L (-2.0-2.0); BG CARBOXYHEMOGLOBIN 0.3 % (0.5-1.5); BG DEOXYHEMOGLOBIN 19.5 % (0.0-5.0); BG FRACTION INSPIRED OXYGEN 40; BG HCO3 ACT 30.8 mmol/L (22.0-26.0); BG METHEMOGLOBIN 1.9 % (0.0-1.5); BG OXYGEN SATURATION 80.1 % (92.0-98.5); BG OXYHEMOGLOBIN 78.3 % (94.0-97.0); BG PCO2 134.4 mmHg (35.0-45.0); BG PH 6.978 (7.350-7.450); BG PO2 68.8 mmHg (75.0-100.0); BG SAMPLE SITE LEFT RADIAL; BG TOTAL HEMOGLOBIN 10.5 g/dL (12.0-18.0); BG VENT MODE NASAL CANNULA
[2023-08-01] MEDS: NOREPINEPHRINE 8MG/250ML PMX 250 ML IV PRN ×2 (04:35→07:58)
[2023-08-01 05:55] LABS: POTASSIUM 5.9 mEq/L (3.5-5.1)
[2023-08-01 05:56] LABS: HEMATOCRIT. 33.7 % (36.0-48.0); MEAN CORPUSCULAR HEMOGLOBIN 32.5 pg (28.0-32.0); MEAN CORPUSCULAR HGB CONC 29.8 g/dL (31.0-37.0); MEAN CORPUSCULAR VOLUME 108.9 fL (81.0-99.0); MEAN PLATELET VOLUME 9.4 fl (7.4-10.4); PLATELET 230 x1000/uL (130-400); RED BLOOD CELL COUNT 3.09 mill/uL (4.2-5.4); RED CELL DISTRIBUTION WIDTH 15.7 % (11.6-14.6); WHITE BLOOD COUNT 29.2 x1000/uL (4.5-11.0)
[2023-08-01 06:01] LABS: CALCIUM 8.5 mg/dL (8.5-10.1); CREATININE 1.5 mg/dL (0.6-1.3)
[2023-08-01] MEDS: MEROPENEM 1000MG in NORMAL SALINE 100ML IV SCH ×2 (06:10→17:43)
[2023-08-01 06:33] LABS: DIFFERENTIAL COMMENT 1
[2023-08-01] MEDS ORDERED: POTASSIUM CHLORIDE INJ 40 MEQ in DEXT 5% WATER 250 ML IV SCH (08:30)
[2023-08-01 08:42] LABS: BG CARBOXYHEMOGLOBIN 0.3 % (0.5-1.5); BG DEOXYHEMOGLOBIN 7.4 % (0.0-5.0); BG FRACTION INSPIRED OXYGEN 100; BG HCO3 ACT 20.5 mmol/L (22.0-26.0); BG METHEMOGLOBIN 2.8 % (0.0-1.5); BG OXYGEN SATURATION 92.4 % (92.0-98.5); BG OXYHEMOGLOBIN 89.5 % (94.0-97.0); BG PCO2 63.3 mmHg (35.0-45.0); BG PH 7.129 (7.350-7.450); BG PO2 71.5 mmHg (75.0-100.0); BG SAMPLE SITE RIGHT RADIAL; BG TOTAL HEMOGLOBIN 11.3 g/dL (12.0-18.0); BG VENT MODE VENT - AC
[2023-08-01] MEDS ORDERED: SODIUM POLYSTYRENE SULFONATE 15 G/60 ML BOT PO SCH (09:00)
[2023-08-01] MEDS ORDERED: LIDOCAINE HCL 1% 10 MG/ML 10ML VIAL ONE ×3 (09:00→16:29)
[2023-08-01] MEDS: DEXT 5%/0.45% NACL 1000ML 1,000 ML IV SCH ×2 (09:09→22:10)
[2023-08-01] MEDS ORDERED: CALCIUM CHLORIDE 1,000 MG in DEXT 5% WATER 90 ML IV SCH (09:49)
[2023-08-01] MEDS: LEVETIRACETAM 500MG PREMIX 100 ML IV SCH ×2 (09:56→21:23)
[2023-08-01] MEDS: METHYLPREDNISOLONE SOD SUCC 40MG/ML (ACT-O-VIAL) IV SCH ×2 (09:57→21:24)
[2023-08-01] MEDS: NYSTATIN POWDER 15GM TOP SCH ×3 (09:58→17:43)
[2023-08-01] MEDS ORDERED: SODIUM BICARBONATE 8.4% 1 MEQ/ML 50ML SYR IV SCH (10:00)
[2023-08-01] MEDS ORDERED: ALBUTEROL (0.5%) 2.5MG/0.5ML NEB HHN SCH (10:00)
[2023-08-01 10:38] LABS: BG BASE EXCESS -8.1 mmol/L (-2.0-2.0); BG CARBOXYHEMOGLOBIN 0.2 % (0.5-1.5); BG DEOXYHEMOGLOBIN 0.7 % (0.0-5.0); BG FRACTION INSPIRED OXYGEN 100; BG HCO3 ACT 14.9 mmol/L (22.0-26.0); BG METHEMOGLOBIN 2.2 % (0.0-1.5); BG OXYGEN SATURATION 99.3 % (92.0-98.5); BG OXYHEMOGLOBIN 96.9 % (94.0-97.0); BG PCO2 23.4 mmHg (35.0-45.0); BG PH 7.421 (7.350-7.450); BG PO2 326.3 mmHg (75.0-100.0); BG SAMPLE SITE RIGHT RADIAL; BG TOTAL HEMOGLOBIN 10.1 g/dL (12.0-18.0); BG VENT MODE VENT - AC
[2023-08-01] MEDS ORDERED: DEXTROSE 50% WATER 50ML SYRINGE IV NR (11:02)
[2023-08-01] MEDS ORDERED: INSULIN REGULAR (HUMULIN R) 300UNITS/3ML VIAL IV NR (11:02)
[2023-08-01] MEDS ORDERED: SODIUM POLYSTYRENE SULFONATE 15 G/60 ML BOT PO NR (11:30)
[2023-08-01 11:47] LABS: NUCLEATED RED BLOOD CELLS 2 /100 WBC
[2023-08-01 11:48] LABS: ANISOCYTOSIS 1+; PLATELET ESTIMATE NORMAL; TOXIC GRANULATION 1+
[2023-08-01] MEDS ORDERED: SODIUM POLYSTYRENE SULFONATE 15 G/60 ML BOT PO ONE (13:15)
[2023-08-01 14:11] LABS: POTASSIUM 3.4 mEq/L (3.5-5.1)
[2023-08-01 14:12] LABS: CALCIUM 9.6 mg/dL (8.5-10.1)
[2023-08-01 14:17] LABS: CREATININE 2.4 mg/dL (0.6-1.3)
[2023-08-01] MEDS ORDERED: ROCURONIUM BROMIDE 10MG/ML VIAL 5ML IV ONE (15:25)
[2023-08-01] MEDS ORDERED: PHENYLEPHRINE HCL 10 MG/ML 1ML (IV VIAL) IV ONE (16:00)
[2023-08-01] MEDS ORDERED: BUPIVACAINE HCL/PF 0.5% (5MG/ML) 10ML ONE (16:05)
[2023-08-01] MEDS ORDERED: SKIN ADHESIVE 0.7 GM EA TOP ONE (16:05)
[2023-08-01] MEDS ORDERED: POLYMYXIN B SULFATE 500000 UNITS/VIAL ONE (16:06)
[2023-08-01] MEDS ORDERED: VANCOMYCIN 750MG PREMIX 150 ML IV SCH (18:00)
[2023-08-01] MEDS: MICAFUNGIN 100 MG in SODIUM CHLORIDE 0.9% 100 ML IV SCH (22:10)
[2023-08-02] VITALS (95 sets, daily range): BP systolic 81–133; BP diastolic 49–77; PULSE 83–103; RESP 18–30; TEMP 98–99.9
[2023-08-02] MEDS: BLOOD SUGAR DIAGNOSTIC STRIP TEST SCH ×4 (00:09→18:15)
[2023-08-02] MEDS: METOCLOPRAMIDE HCL 10MG/2ML VIAL IV SCH ×4 (00:10→17:20)
[2023-08-02] MEDS: ACETYLCYSTEINE 100MG/ML 10% VIAL 4ML INH SCH (01:00)
[2023-08-02] MEDS: MEROPENEM 1000MG in NORMAL SALINE 100ML IV SCH ×2 (05:52→17:20)
[2023-08-02 05:57] LABS: POTASSIUM 3.5 mEq/L (3.5-5.1)
[2023-08-02 05:58] LABS: CALCIUM 8.7 mg/dL (8.5-10.1)
[2023-08-02 06:04] LABS: CREATININE 3.1 mg/dL (0.6-1.3)
[2023-08-02] MEDS: NYSTATIN POWDER 15GM TOP SCH ×3 (08:52→17:20)
[2023-08-02] MEDS: LEVETIRACETAM 500MG PREMIX 100 ML IV SCH ×2 (08:52→21:50)
[2023-08-02] MEDS: METHYLPREDNISOLONE SOD SUCC 40MG/ML (ACT-O-VIAL) IV SCH ×2 (08:52→21:50)
[2023-08-02] MEDS: DEXT 5%/0.45% NACL 1000ML 1,000 ML IV SCH (12:43)
[2023-08-02] MEDS: MENTHOL/LANOLIN/CALAMINE/ZN OX OINT 71GM TOP SCH ×3 (13:32→21:50)
[2023-08-02 14:07] LABS: INDEX HEMOLYSI 1 (1-3)
[2023-08-02 14:13] LABS: CREATINE KINASE 26 IU/L (26-192)
[2023-08-02 18:54] LABS: HEMATOCRIT. 24.3 % (36.0-48.0); HEMOGLOBIN. 7.9 g/dL (12.0-16.0); MEAN CORPUSCULAR HEMOGLOBIN 32.6 pg (28.0-32.0); MEAN CORPUSCULAR HGB CONC 32.5 g/dL (31.0-37.0); MEAN CORPUSCULAR VOLUME 100.5 fL (81.0-99.0); MEAN PLATELET VOLUME 9.5 fl (7.4-10.4); PLATELET 123 x1000/uL (130-400); RED BLOOD CELL COUNT 2.42 mill/uL (4.2-5.4); RED CELL DISTRIBUTION WIDTH 14.9 % (11.6-14.6); WHITE BLOOD COUNT 8.2 x1000/uL (4.5-11.0)
[2023-08-02 19:00] LABS: DIFFERENTIAL COMMENT 1
[2023-08-02 19:06] LABS: CHLORIDE 120 mEq/L (98-107); INDEX HEMOLYSI 1 (1-3); INDEX ICTERIC 1 (1-4); INDEX LIPEMIC 1 (1-3); POTASSIUM 3.4 mEq/L (3.5-5.1); SODIUM 151 mEq/L (136-145)
[2023-08-02 19:14] LABS: ALANINE AMINOTRANSFERASE 27 IU/L (13-61); ASPARTATE AMINOTRANSFERASE 41 IU/L (15-37); BILIRUBIN TOTAL 0.7 mg/dL (0.1-1.0); CARBON DIOXIDE 18 mEq/L (21-32); CREATININE 3.4 mg/dL (0.6-1.3); GLUCOSE 162 mg/dL (70-105); PROTEIN TOTAL 5.7 g/dL (6.0-8.3); UREA NITROGEN BLOOD 57 mg/dL (7-21)
[2023-08-02 19:30] LABS: PLATELET ESTIMATE DECREASED
[2023-08-02] MEDS: MICAFUNGIN 100 MG in SODIUM CHLORIDE 0.9% 100 ML IV SCH (20:15)
[2023-08-03] VITALS (100 sets, daily range): BP systolic 84–149; BP diastolic 51–90; PULSE 80–103; RESP 10–35; TEMP 98.1–99.1
[2023-08-03] MEDS: METOCLOPRAMIDE HCL 10MG/2ML VIAL IV SCH ×4 (00:19→17:16)
[2023-08-03] MEDS: BLOOD SUGAR DIAGNOSTIC STRIP TEST SCH ×5 (00:19→21:09)
[2023-08-03] MEDS: DEXT 5%/0.45% NACL 1000ML 1,000 ML IV SCH (05:31)
[2023-08-03 05:53] LABS: CALCIUM 8.5 mg/dL (8.5-10.1); POTASSIUM 3.6 mEq/L (3.5-5.1)
[2023-08-03 05:57] LABS: CREATININE 3.8 mg/dL (0.6-1.3)
[2023-08-03] MEDS: ACETYLCYSTEINE 100MG/ML 10% VIAL 4ML INH SCH ×3 (08:39→20:52)
[2023-08-03] MEDS: METHYLPREDNISOLONE SOD SUCC 40MG/ML (ACT-O-VIAL) IV SCH ×2 (08:43→21:16)
[2023-08-03] MEDS: FAMOTIDINE 20MG/2ML VIAL IV SCH (08:44)
[2023-08-03] MEDS: LEVETIRACETAM 500MG PREMIX 100 ML IV SCH ×2 (08:44→21:16)
[2023-08-03] MEDS: DEXTROSE 5% WATER 1,000 ML IV SCH (08:45)
[2023-08-03] MEDS: MENTHOL/LANOLIN/CALAMINE/ZN OX OINT 71GM TOP SCH ×4 (08:45→21:16)
[2023-08-03] MEDS: NYSTATIN POWDER 15GM TOP SCH ×3 (08:45→17:15)
[2023-08-03] MEDS ORDERED: PANTOPRAZOLE SODIUM 40 MG/VIAL IV SCH (09:00)
[2023-08-03 11:33] LABS: BG BASE EXCESS -0.7 mmol/L (-2.0-2.0); BG CARBOXYHEMOGLOBIN 0.2 % (0.5-1.5); BG DEOXYHEMOGLOBIN 2.8 % (0.0-5.0); BG FRACTION INSPIRED OXYGEN 40; BG HCO3 ACT 20.6 mmol/L (22.0-26.0); BG METHEMOGLOBIN 1.7 % (0.0-1.5); BG OXYGEN SATURATION 97.1 % (92.0-98.5); BG OXYHEMOGLOBIN 95.3 % (94.0-97.0); BG PCO2 23.1 mmHg (35.0-45.0); BG PH 7.568 (7.350-7.450); BG PO2 104.3 mmHg (75.0-100.0); BG SAMPLE SITE RIGHT RADIAL; BG TOTAL HEMOGLOBIN 8.7 g/dL (12.0-18.0); BG VENT MODE VENT - AC
[2023-08-03 14:32] LABS: BG CARBOXYHEMOGLOBIN 0.2 % (0.5-1.5); BG DEOXYHEMOGLOBIN 3.1 % (0.0-5.0); BG FRACTION INSPIRED OXYGEN 40; BG HCO3 ACT 20.9 mmol/L (22.0-26.0); BG METHEMOGLOBIN 1.6 % (0.0-1.5); BG OXYGEN SATURATION 96.8 % (92.0-98.5); BG OXYHEMOGLOBIN 95.1 % (94.0-97.0); BG PCO2 32.8 mmHg (35.0-45.0); BG PH 7.422 (7.350-7.450); BG PO2 107.8 mmHg (75.0-100.0); BG SAMPLE SITE RIGHT RADIAL; BG TOTAL HEMOGLOBIN 8.9 g/dL (12.0-18.0); BG TOTAL RESPIRATORY RATE 19 b/min; BG VENT MODE VENT - AC
[2023-08-03] MEDS ORDERED: DEXTROSE 50% WATER 50ML SYRINGE IV PRN (18:15)
[2023-08-03] MEDS: INSULIN LISPRO 100 UNITS/ML SUBCUT SCH ×2 (18:35→21:00)
[2023-08-03] MEDS: NOREPINEPHRINE 8MG/250ML PMX 250 ML IV PRN (18:53)
[2023-08-03] MEDS: MICAFUNGIN 100 MG in SODIUM CHLORIDE 0.9% 100 ML IV SCH (20:18)
[2023-08-04] VITALS (97 sets, daily range): BP systolic 88–191; BP diastolic 53–107; PULSE 81–112; RESP 14–22; TEMP 97.8–99.2
[2023-08-04] MEDS: METOCLOPRAMIDE HCL 10MG/2ML VIAL IV SCH ×5 (00:56→23:07)
[2023-08-04] MEDS: DEXTROSE 5% WATER 1,000 ML IV SCH ×2 (00:57→17:34)
[2023-08-04 05:26] LABS: HEMATOCRIT. 25.2 % (36.0-48.0); HEMOGLOBIN. 8.2 g/dL (12.0-16.0); MEAN CORPUSCULAR HEMOGLOBIN 32.2 pg (28.0-32.0); MEAN CORPUSCULAR HGB CONC 32.5 g/dL (31.0-37.0); MEAN CORPUSCULAR VOLUME 99.1 fL (81.0-99.0); MEAN PLATELET VOLUME 9.7 fl (7.4-10.4); PLATELET 127 x1000/uL (130-400); RED BLOOD CELL COUNT 2.54 mill/uL (4.2-5.4); RED CELL DISTRIBUTION WIDTH 14.4 % (11.6-14.6); WHITE BLOOD COUNT 7.1 x1000/uL (4.5-11.0)
[2023-08-04 05:32] LABS: INR 1.2; PROTHROMBIN TIME 12.4 sec (9.6-11.0)
[2023-08-04 05:36] LABS: POTASSIUM 3.7 mEq/L (3.5-5.1)
[2023-08-04 05:45] LABS: ALBUMIN 2.2 g/dL (3.4-5.0); BILIRUBIN DIRECT 0.3 mg/dL (0.0-0.2); BILIRUBIN TOTAL 0.5 mg/dL (0.1-1.0); CREATININE 3.9 mg/dL (0.6-1.3); PROTEIN TOTAL 5.8 g/dL (6.0-8.3)
[2023-08-04 06:18] LABS: DIFFERENTIAL COMMENT 1
[2023-08-04] MEDS: BLOOD SUGAR DIAGNOSTIC STRIP TEST SCH ×4 (07:50→21:19)
[2023-08-04] MEDS: METHYLPREDNISOLONE SOD SUCC 40MG/ML (ACT-O-VIAL) IV SCH ×2 (09:52→21:24)
[2023-08-04] MEDS: INSULIN LISPRO 100 UNITS/ML SUBCUT SCH ×4 (09:52→21:24)
[2023-08-04] MEDS: FAMOTIDINE 20MG/2ML VIAL IV SCH (09:52)
[2023-08-04] MEDS: LEVETIRACETAM 500MG PREMIX 100 ML IV SCH ×2 (09:52→21:23)
[2023-08-04] MEDS: NYSTATIN POWDER 15GM TOP SCH ×3 (09:53→17:31)
[2023-08-04] MEDS: MENTHOL/LANOLIN/CALAMINE/ZN OX OINT 71GM TOP SCH ×4 (09:53→21:23)
[2023-08-04 14:20] LABS: PLATELET ESTIMATE SLIGHTLY DECREASED
[2023-08-04] MEDS: MICAFUNGIN 100 MG in SODIUM CHLORIDE 0.9% 100 ML IV SCH (20:10)
[2023-08-05] VITALS (73 sets, daily range): BP systolic 97–127; BP diastolic 63–84; PULSE 81–105; RESP 14–20; TEMP 97.6–99
[2023-08-05 02:30] LABS: INDEX HEMOLYSI 3 (1-3)
[2023-08-05 02:32] LABS: AMMONIA 35 uMol/L (<32)
[2023-08-05 05:38] LABS: HEMATOCRIT. 26.9 % (36.0-48.0); HEMOGLOBIN. 8.7 g/dL (12.0-16.0); MEAN CORPUSCULAR HEMOGLOBIN 31.9 pg (28.0-32.0); MEAN CORPUSCULAR HGB CONC 32.2 g/dL (31.0-37.0); MEAN CORPUSCULAR VOLUME 99.1 fL (81.0-99.0); MEAN PLATELET VOLUME 10.3 fl (7.4-10.4); PLATELET 125 x1000/uL (130-400); RED BLOOD CELL COUNT 2.71 mill/uL (4.2-5.4); RED CELL DISTRIBUTION WIDTH 14.3 % (11.6-14.6)
[2023-08-05 05:43] LABS: POTASSIUM 3.4 mEq/L (3.5-5.1)
[2023-08-05 05:52] LABS: CALCIUM 7.9 mg/dL (8.5-10.1); CREATININE 3.6 mg/dL (0.6-1.3)
[2023-08-05 06:02] LABS: DIFFERENTIAL COMMENT 1
[2023-08-05] MEDS: METOCLOPRAMIDE HCL 10MG/2ML VIAL IV SCH ×4 (06:23→23:42)
[2023-08-05] MEDS: BLOOD SUGAR DIAGNOSTIC STRIP TEST SCH ×5 (07:50→23:37)
[2023-08-05 08:37] LABS: BG BASE EXCESS -1.9 mmol/L (-2.0-2.0); BG CARBOXYHEMOGLOBIN 0.3 % (0.5-1.5); BG DEOXYHEMOGLOBIN 2.5 % (0.0-5.0); BG FRACTION INSPIRED OXYGEN 40; BG HCO3 ACT 22.6 mmol/L (22.0-26.0); BG METHEMOGLOBIN 1.9 % (0.0-1.5); BG OXYGEN SATURATION 97.4 % (92.0-98.5); BG OXYHEMOGLOBIN 95.3 % (94.0-97.0); BG PCO2 37.1 mmHg (35.0-45.0); BG PH 7.402 (7.350-7.450); BG PO2 110.7 mmHg (75.0-100.0); BG SAMPLE SITE RIGHT RADIAL; BG TOTAL HEMOGLOBIN 9.3 g/dL (12.0-18.0); BG VENT MODE VENT - AC
[2023-08-05] MEDS: FAMOTIDINE 20MG/2ML VIAL IV SCH (09:21)
[2023-08-05] MEDS: METHYLPREDNISOLONE SOD SUCC 40MG/ML (ACT-O-VIAL) IV SCH ×2 (09:21→21:04)
[2023-08-05] MEDS: LEVETIRACETAM 500MG PREMIX 100 ML IV SCH ×2 (09:21→21:04)
[2023-08-05] MEDS: DEXTROSE 5% WATER 1,000 ML IV SCH (09:21)
[2023-08-05] MEDS: INSULIN LISPRO 100 UNITS/ML SUBCUT SCH ×4 (09:24→23:42)
[2023-08-05] MEDS: NYSTATIN POWDER 15GM TOP SCH ×3 (09:26→17:57)
[2023-08-05] MEDS: MENTHOL/LANOLIN/CALAMINE/ZN OX OINT 71GM TOP SCH ×4 (09:26→21:05)
[2023-08-05 10:31] LABS: PLATELET ESTIMATE SLIGHTLY DECREASED
[2023-08-05] MEDS ORDERED: POTASSIUM CHLORIDE 20MEQ/PACKET PO NR (11:30)
[2023-08-05] MEDS: MICAFUNGIN 100 MG in SODIUM CHLORIDE 0.9% 100 ML IV SCH (21:04)
[2023-08-06] VITALS (45 sets, daily range): BP systolic 103–137; BP diastolic 64–86; PULSE 79–102; RESP 15–27; TEMP 97.3–99.1
[2023-08-06] MEDS: DEXTROSE 5% WATER 1,000 ML IV SCH ×2 (02:29→18:30)
[2023-08-06 05:44] LABS: HEMATOCRIT. 28.4 % (36.0-48.0); HEMOGLOBIN. 9.3 g/dL (12.0-16.0); MEAN CORPUSCULAR HEMOGLOBIN 32.1 pg (28.0-32.0); MEAN CORPUSCULAR HGB CONC 32.5 g/dL (31.0-37.0); MEAN CORPUSCULAR VOLUME 98.5 fL (81.0-99.0); MEAN PLATELET VOLUME 10.2 fl (7.4-10.4); PLATELET 138 x1000/uL (130-400); RED BLOOD CELL COUNT 2.89 mill/uL (4.2-5.4); RED CELL DISTRIBUTION WIDTH 14.2 % (11.6-14.6); WHITE BLOOD COUNT 16.4 x1000/uL (4.5-11.0)
[2023-08-06 05:55] LABS: POTASSIUM 3.5 mEq/L (3.5-5.1)
[2023-08-06] MEDS: INSULIN LISPRO 100 UNITS/ML SUBCUT SCH ×3 (06:00→17:03)
[2023-08-06] MEDS: BLOOD SUGAR DIAGNOSTIC STRIP TEST SCH ×3 (06:00→17:01)
[2023-08-06 06:01] LABS: CALCIUM 8.3 mg/dL (8.5-10.1); CREATININE 2.8 mg/dL (0.6-1.3)
[2023-08-06 06:13] LABS: DIFFERENTIAL COMMENT 1
[2023-08-06] MEDS ORDERED: POTASSIUM CHLORIDE 20MEQ/PACKET PO NR (07:15)
[2023-08-06] MEDS: METOCLOPRAMIDE HCL 10MG/2ML VIAL IV SCH ×3 (07:24→17:02)
[2023-08-06] MEDS: METHYLPREDNISOLONE SOD SUCC 40MG/ML (ACT-O-VIAL) IV SCH ×2 (08:06→20:22)
[2023-08-06] MEDS: MENTHOL/LANOLIN/CALAMINE/ZN OX OINT 71GM TOP SCH ×4 (08:06→20:23)
[2023-08-06] MEDS: FAMOTIDINE 20MG/2ML VIAL IV SCH (08:06)
[2023-08-06] MEDS: NYSTATIN POWDER 15GM TOP SCH ×3 (08:06→16:44)
[2023-08-06] MEDS: LEVETIRACETAM 500MG PREMIX 100 ML IV SCH ×2 (08:06→20:22)
[2023-08-06 10:29] LABS: PLATELET ESTIMATE NORMAL
[2023-08-06] MEDS: MICAFUNGIN 100 MG in SODIUM CHLORIDE 0.9% 100 ML IV SCH (20:22)
[2023-08-07] VITALS (81 sets, daily range): BP systolic 71–197; BP diastolic 48–153; PULSE 72–171; RESP 14–68; TEMP 97.9–99.6
[2023-08-07] MEDS: METOCLOPRAMIDE HCL 10MG/2ML VIAL IV SCH ×5 (00:20→23:30)
[2023-08-07] MEDS: INSULIN LISPRO 100 UNITS/ML SUBCUT SCH ×5 (00:21→23:41)
[2023-08-07 06:15] LABS: HEMATOCRIT. 28.7 % (36.0-48.0); HEMOGLOBIN. 9.2 g/dL (12.0-16.0); MEAN CORPUSCULAR HEMOGLOBIN 31.5 pg (28.0-32.0); MEAN CORPUSCULAR HGB CONC 32.1 g/dL (31.0-37.0); MEAN CORPUSCULAR VOLUME 98.3 fL (81.0-99.0); MEAN PLATELET VOLUME 11.1 fl (7.4-10.4); PLATELET 178 x1000/uL (130-400); RED BLOOD CELL COUNT 2.92 mill/uL (4.2-5.4); RED CELL DISTRIBUTION WIDTH 14.2 % (11.6-14.6)
[2023-08-07 06:23] LABS: DIFFERENTIAL COMMENT 1
[2023-08-07 06:31] LABS: CALCIUM 8.2 mg/dL (8.5-10.1); CREATININE 2.4 mg/dL (0.6-1.3); PHOSPHORUS 3.5 mg/dL (2.5-4.9)
[2023-08-07] MEDS: BLOOD SUGAR DIAGNOSTIC STRIP TEST SCH ×4 (06:36→18:00)
[2023-08-07 06:49] LABS: POTASSIUM 4.5 mEq/L (3.5-5.1)
[2023-08-07 10:04] LABS: BG BASE EXCESS -7.7 mmol/L (-2.0-2.0); BG CARBOXYHEMOGLOBIN 0.3 % (0.5-1.5); BG DEOXYHEMOGLOBIN 0.7 % (0.0-5.0); BG FRACTION INSPIRED OXYGEN 100; BG HCO3 ACT 19.4 mmol/L (22.0-26.0); BG METHEMOGLOBIN 1.5 % (0.0-1.5); BG OXYGEN SATURATION 99.3 % (92.0-98.5); BG OXYHEMOGLOBIN 97.5 % (94.0-97.0); BG PCO2 46.2 mmHg (35.0-45.0); BG PO2 374.6 mmHg (75.0-100.0); BG SAMPLE SITE RIGHT BRACHIAL; BG TOTAL HEMOGLOBIN 10.4 g/dL (12.0-18.0); BG TOTAL RESPIRATORY RATE 18 b/min; BG VENT MODE VENT - AC
[2023-08-07 11:04] LABS: PLATELET ESTIMATE NORMAL
[2023-08-07] MEDS: NOREPINEPHRINE 8MG/250ML PMX 250 ML IV PRN (11:30)
[2023-08-07] MEDS: LEVETIRACETAM 500MG PREMIX 100 ML IV SCH ×2 (11:38→21:02)
[2023-08-07] MEDS: MENTHOL/LANOLIN/CALAMINE/ZN OX OINT 71GM TOP SCH ×4 (11:39→21:03)
[2023-08-07] MEDS: DEXTROSE 5% WATER 1,000 ML IV SCH (11:39)
[2023-08-07] MEDS: METHYLPREDNISOLONE SOD SUCC 40MG/ML (ACT-O-VIAL) IV SCH ×2 (12:58→21:02)
[2023-08-07] MEDS: NYSTATIN POWDER 15GM TOP SCH ×3 (13:00→19:07)
[2023-08-07 13:23] LABS: HEMATOCRIT. 27.6 % (36.0-48.0); HEMOGLOBIN. 8.8 g/dL (12.0-16.0); MEAN CORPUSCULAR HEMOGLOBIN 31.4 pg (28.0-32.0); MEAN CORPUSCULAR HGB CONC 31.8 g/dL (31.0-37.0); MEAN CORPUSCULAR VOLUME 98.6 fL (81.0-99.0); MEAN PLATELET VOLUME 10.6 fl (7.4-10.4); PLATELET 197 x1000/uL (130-400); RED CELL DISTRIBUTION WIDTH 14.7 % (11.6-14.6); WHITE BLOOD COUNT 24.9 x1000/uL (4.5-11.0)
[2023-08-07 13:27] LABS: POTASSIUM 3.9 mEq/L (3.5-5.1)
[2023-08-07 13:30] LABS: DIFFERENTIAL COMMENT 1
[2023-08-07 13:33] LABS: CALCIUM 8.5 mg/dL (8.5-10.1); CREATININE 2.3 mg/dL (0.6-1.3)
[2023-08-07 13:54] LABS: PHOSPHORUS 3.9 mg/dL (2.5-4.9)
[2023-08-07 14:08] LABS: NUCLEATED RED BLOOD CELLS 1 /100 WBC; PLATELET ESTIMATE NORMAL
[2023-08-07] MEDS: MEROPENEM 1,000 MG in SODIUM CHLORIDE 0.9% 100 ML IV SCH (16:30)
[2023-08-08] VITALS (103 sets, daily range): BP systolic 100–217; BP diastolic 64–97; PULSE 76–106; RESP 13–28; TEMP 97.2–98.6
[2023-08-08] MEDS: NOREPINEPHRINE 8MG/250ML PMX 250 ML IV PRN (03:35)
[2023-08-08] MEDS: MEROPENEM 1,000 MG in SODIUM CHLORIDE 0.9% 100 ML IV SCH ×2 (03:40→17:45)
[2023-08-08] MEDS: DEXTROSE 5% WATER 1,000 ML IV SCH (03:41)
[2023-08-08] MEDS: METOCLOPRAMIDE HCL 10MG/2ML VIAL IV SCH ×3 (05:09→17:45)
[2023-08-08] MEDS: BLOOD SUGAR DIAGNOSTIC STRIP TEST SCH ×4 (05:37→17:46)
[2023-08-08] MEDS: INSULIN LISPRO 100 UNITS/ML SUBCUT SCH ×3 (06:05→17:45)
[2023-08-08 06:28] LABS: HEMATOCRIT. 25.8 % (36.0-48.0); HEMOGLOBIN. 8.3 g/dL (12.0-16.0); MEAN CORPUSCULAR HEMOGLOBIN 31.1 pg (28.0-32.0); MEAN CORPUSCULAR HGB CONC 32.2 g/dL (31.0-37.0); MEAN CORPUSCULAR VOLUME 96.5 fL (81.0-99.0); MEAN PLATELET VOLUME 11.2 fl (7.4-10.4); PLATELET 176 x1000/uL (130-400); RED BLOOD CELL COUNT 2.68 mill/uL (4.2-5.4); RED CELL DISTRIBUTION WIDTH 14.7 % (11.6-14.6); WHITE BLOOD COUNT 15.2 x1000/uL (4.5-11.0)
[2023-08-08 06:42] LABS: POTASSIUM 4.1 mEq/L (3.5-5.1)
[2023-08-08 06:50] LABS: CALCIUM 8.3 mg/dL (8.5-10.1); CREATININE 2.4 mg/dL (0.6-1.3)
[2023-08-08 07:08] LABS: DIFFERENTIAL COMMENT 1
[2023-08-08 08:31] LABS: BG BASE EXCESS 1.5 mmol/L (-2.0-2.0); BG CARBOXYHEMOGLOBIN 0.3 % (0.5-1.5); BG DEOXYHEMOGLOBIN 0.9 % (0.0-5.0); BG FRACTION INSPIRED OXYGEN 50; BG HCO3 ACT 23.3 mmol/L (22.0-26.0); BG METHEMOGLOBIN 0.6 % (0.0-1.5); BG OXYGEN SATURATION 99.1 % (92.0-98.5); BG OXYHEMOGLOBIN 98.2 % (94.0-97.0); BG PCO2 26.8 mmHg (35.0-45.0); BG PH 7.557 (7.350-7.450); BG PO2 190.2 mmHg (75.0-100.0); BG SAMPLE SITE RIGHT RADIAL; BG TOTAL HEMOGLOBIN 8.9 g/dL (12.0-18.0); BG TOTAL RESPIRATORY RATE 24 b/min; BG VENT MODE VENT - AC
[2023-08-08] MEDS: METHYLPREDNISOLONE SOD SUCC 40MG/ML (ACT-O-VIAL) IV SCH ×2 (09:11→21:33)
[2023-08-08] MEDS: FAMOTIDINE 20MG/2ML VIAL IV SCH (09:11)
[2023-08-08] MEDS: LEVETIRACETAM 500MG PREMIX 100 ML IV SCH ×2 (09:11→21:33)
[2023-08-08] MEDS: MENTHOL/LANOLIN/CALAMINE/ZN OX OINT 71GM TOP SCH ×4 (09:12→21:33)
[2023-08-08] MEDS: NYSTATIN POWDER 15GM TOP SCH ×3 (09:12→17:46)
[2023-08-08 11:26] LABS: PLATELET ESTIMATE NORMAL
[2023-08-09] VITALS (92 sets, daily range): BP systolic 115–139; BP diastolic 68–92; PULSE 93–117; RESP 16–25; TEMP 97.5–99.8
[2023-08-09] MEDS: BLOOD SUGAR DIAGNOSTIC STRIP TEST SCH ×4 (00:10→18:19)
[2023-08-09] MEDS: METOCLOPRAMIDE HCL 10MG/2ML VIAL IV SCH ×4 (00:19→17:33)
[2023-08-09] MEDS: INSULIN LISPRO 100 UNITS/ML SUBCUT SCH ×4 (00:20→18:24)
[2023-08-09] MEDS: MEROPENEM 1,000 MG in SODIUM CHLORIDE 0.9% 100 ML IV SCH ×2 (03:59→17:32)
[2023-08-09 05:37] LABS: POTASSIUM 4.3 mEq/L (3.5-5.1)
[2023-08-09 05:44] LABS: HEMATOCRIT. 25.6 % (36.0-48.0); HEMOGLOBIN. 8.1 g/dL (12.0-16.0); MEAN CORPUSCULAR HEMOGLOBIN 30.9 pg (28.0-32.0); MEAN CORPUSCULAR HGB CONC 31.4 g/dL (31.0-37.0); MEAN CORPUSCULAR VOLUME 98.3 fL (81.0-99.0); PLATELET 167 x1000/uL (130-400); RED BLOOD CELL COUNT 2.61 mill/uL (4.2-5.4); RED CELL DISTRIBUTION WIDTH 14.7 % (11.6-14.6); WHITE BLOOD COUNT 14.2 x1000/uL (4.5-11.0)
[2023-08-09 05:47] LABS: CALCIUM 8.4 mg/dL (8.5-10.1); CREATININE 2.2 mg/dL (0.6-1.3)
[2023-08-09 06:58] LABS: DIFFERENTIAL COMMENT 1
[2023-08-09 08:44] LABS: PLATELET ESTIMATE NORMAL
[2023-08-09] MEDS: DEXTROSE 5% WATER 1,000 ML IV SCH (09:01)
[2023-08-09] MEDS: METHYLPREDNISOLONE SOD SUCC 40MG/ML (ACT-O-VIAL) IV SCH ×2 (09:02→22:30)
[2023-08-09] MEDS: MENTHOL/LANOLIN/CALAMINE/ZN OX OINT 71GM TOP SCH ×4 (09:02→22:31)
[2023-08-09] MEDS: NYSTATIN POWDER 15GM TOP SCH ×3 (09:02→17:33)
[2023-08-09] MEDS: LEVETIRACETAM 500MG PREMIX 100 ML IV SCH ×2 (09:08→22:30)
[2023-08-09] MEDS ORDERED: FUROSEMIDE 40MG/4ML VIAL IVP SCH (12:00)
[2023-08-09] MEDS ORDERED: VANCOMYCIN 1G PREMIX 200 ML IV NR (17:00)
[2023-08-10] VITALS (68 sets, daily range): BP systolic 101–140; BP diastolic 65–90; PULSE 83–108; RESP 16–18; TEMP 98.5–102
[2023-08-10] MEDS: DEXTROSE 5% WATER 1,000 ML IV SCH (00:34)
[2023-08-10] MEDS: INSULIN LISPRO 100 UNITS/ML SUBCUT SCH ×4 (02:10→17:41)
[2023-08-10] MEDS: BLOOD SUGAR DIAGNOSTIC STRIP TEST SCH ×4 (06:00→17:24)
[2023-08-10 06:15] LABS: HEMATOCRIT. 22.8 % (36.0-48.0); HEMOGLOBIN. 7.3 g/dL (12.0-16.0); MEAN CORPUSCULAR HEMOGLOBIN 31.8 pg (28.0-32.0); MEAN CORPUSCULAR VOLUME 99.3 fL (81.0-99.0); MEAN PLATELET VOLUME 10.9 fl (7.4-10.4); PLATELET 172 x1000/uL (130-400); RED CELL DISTRIBUTION WIDTH 14.6 % (11.6-14.6); WHITE BLOOD COUNT 15.4 x1000/uL (4.5-11.0)
[2023-08-10] MEDS: METOCLOPRAMIDE HCL 10MG/2ML VIAL IV SCH ×4 (06:31→17:38)
[2023-08-10] MEDS: MEROPENEM 1,000 MG in SODIUM CHLORIDE 0.9% 100 ML IV SCH ×2 (06:31→17:29)
[2023-08-10 07:30] LABS: DIFFERENTIAL COMMENT 1
[2023-08-10 07:58] LABS: POTASSIUM 4.5 mEq/L (3.5-5.1)
[2023-08-10 08:07] LABS: CALCIUM 8.2 mg/dL (8.5-10.1); CREATININE 1.9 mg/dL (0.6-1.3)
[2023-08-10] MEDS: FAMOTIDINE 20MG/2ML VIAL IV SCH (09:21)
[2023-08-10] MEDS: LEVETIRACETAM 500MG PREMIX 100 ML IV SCH ×2 (09:21→22:07)
[2023-08-10] MEDS: METHYLPREDNISOLONE SOD SUCC 40MG/ML (ACT-O-VIAL) IV SCH ×2 (09:21→22:08)
[2023-08-10] MEDS: FUROSEMIDE 40MG/4ML VIAL IVP SCH (09:22)
[2023-08-10] MEDS: NYSTATIN POWDER 15GM TOP SCH ×3 (09:22→17:28)
[2023-08-10] MEDS: MENTHOL/LANOLIN/CALAMINE/ZN OX OINT 71GM TOP SCH ×4 (09:22→22:09)
[2023-08-10] MEDS ORDERED: ALBUMIN HUMAN 12.5G/250ML (5%) IV NR (10:15)
[2023-08-10] MEDS ORDERED: SODIUM CHLORIDE 0.45% 250 ML IV NR (10:15)
[2023-08-10] MEDS ORDERED: VANCOMYCIN 750MG PREMIX 150 ML IV NR (12:00)
[2023-08-10 15:54] LABS: PLATELET ESTIMATE NORMAL
[2023-08-11] VITALS (78 sets, daily range): BP systolic 102–129; BP diastolic 58–97; PULSE 91–112; RESP 15–22; TEMP 98.3–99.1
[2023-08-11] MEDS: INSULIN LISPRO 100 UNITS/ML SUBCUT SCH ×4 (00:47→18:16)
[2023-08-11] MEDS: MEROPENEM 1,000 MG in SODIUM CHLORIDE 0.9% 100 ML IV SCH ×2 (04:23→16:53)
[2023-08-11] MEDS: METOCLOPRAMIDE HCL 10MG/2ML VIAL IV SCH ×4 (06:00→17:02)
[2023-08-11] MEDS: BLOOD SUGAR DIAGNOSTIC STRIP TEST SCH ×4 (06:00→17:02)
[2023-08-11 06:28] LABS: HEMATOCRIT. 24.4 % (36.0-48.0); HEMOGLOBIN. 7.8 g/dL (12.0-16.0); MEAN CORPUSCULAR HEMOGLOBIN 32.9 pg (28.0-32.0); MEAN CORPUSCULAR HGB CONC 31.9 g/dL (31.0-37.0); MEAN CORPUSCULAR VOLUME 103.1 fL (81.0-99.0); MEAN PLATELET VOLUME 10.8 fl (7.4-10.4); PLATELET 180 x1000/uL (130-400); RED BLOOD CELL COUNT 2.36 mill/uL (4.2-5.4); RED CELL DISTRIBUTION WIDTH 15.1 % (11.6-14.6); WHITE BLOOD COUNT 19.8 x1000/uL (4.5-11.0)
[2023-08-11 06:36] LABS: CHLORIDE 124 mEq/L (98-107); POTASSIUM 4.4 mEq/L (3.5-5.1)
[2023-08-11 06:42] LABS: CALCIUM 8.2 mg/dL (8.5-10.1); CARBON DIOXIDE 29 mEq/L (21-32); CREATININE 1.8 mg/dL (0.6-1.3); GLUCOSE 181 mg/dL (70-105); PHOSPHORUS 5.1 mg/dL (2.5-4.9); UREA NITROGEN BLOOD 69 mg/dL (7-21)
[2023-08-11 06:49] LABS: SODIUM 156 mEq/L (136-145)
[2023-08-11 06:51] LABS: DIFFERENTIAL COMMENT 1
[2023-08-11] MEDS: FUROSEMIDE 40MG/4ML VIAL IVP SCH (09:40)
[2023-08-11] MEDS: METHYLPREDNISOLONE SOD SUCC 40MG/ML (ACT-O-VIAL) IV SCH (09:40)
[2023-08-11] MEDS: LEVETIRACETAM 500MG PREMIX 100 ML IV SCH (09:40)
[2023-08-11] MEDS: NYSTATIN POWDER 15GM TOP SCH ×3 (09:41→16:50)
[2023-08-11] MEDS: MENTHOL/LANOLIN/CALAMINE/ZN OX OINT 71GM TOP SCH ×3 (09:41→16:50)
[2023-08-11 13:22] LABS: PLATELET ESTIMATE NORMAL
== END 2023-08-11 20:00 | DRG 853 ==
LOC: ER 10:15 → 8WST 12:49 → 5EST 07-26 16:00 → CVICU 07-30 18:04
PROVIDERS: ADMIT Internal Medicine; ATTEND Internal Medicine
PROC: 0DJ64ZZ Inspection of Stomach, Percutaneous Endoscopic Approach (ICD-10-PCS; principal; 2023-08-01)
PROC: 0BH17EZ Insertion of Endotracheal Airway into Trachea, Via Natural or Artificial Opening (ICD-10-PCS; 2023-08-01)
PROC: 5A1955Z Respiratory Ventilation, Greater than 96 Consecutive Hours (ICD-10-PCS; 2023-08-01)
PROC: 05HY33Z Insertion of Infusion Device into Upper Vein, Percutaneous Approach (ICD-10-PCS; 2023-08-01)
PROC: 4A10X4Z Monitoring of Central Nervous Electrical Activity, External Approach (ICD-10-PCS; 2023-08-03)
PROC: 5A12012 Performance of Cardiac Output, Single, Manual (ICD-10-PCS; 2023-08-07)
PROC: 4A10X4Z Monitoring of Central Nervous Electrical Activity, External Approach (ICD-10-PCS; 2023-08-09)
PROC: 30233N1 Transfusion of Nonautologous Red Blood Cells into Peripheral Vein, Percutaneous Approach (ICD-10-PCS; 2023-08-11)
DX: A41.9 Sepsis, unspecified organism (principal); E43 Unspecified severe protein-calorie malnutrition; G93.41 Metabolic encephalopathy; J96.01 Acute respiratory failure with hypoxia; I46.9 Cardiac arrest, cause unspecified; J18.9 Pneumonia, unspecified organism; K56.7 Ileus, unspecified; F03.93 Unspecified dementia, unspecified severity, with mood disturbance; K56.50 Intestinal adhesions [bands], unspecified as to partial versus complete obstruction; N17.9 Acute kidney failure, unspecified; Z99.11 Dependence on respirator [ventilator] status; E22.2 Syndrome of inappropriate secretion of antidiuretic hormone; R29.810 Facial weakness; R47.1 Dysarthria and anarthria; F03.90 Unspecified dementia, unspecified severity, without behavioral disturbance, psychotic disturbance, mood disturbance, and anxiety; Z68.31 Body mass index [BMI] 31.0-31.9, adult; I10 Essential (primary) hypertension; E78.5 Hyperlipidemia, unspecified; D64.9 Anemia, unspecified; E87.6 Hypokalemia; E11.40 Type 2 diabetes mellitus with diabetic neuropathy, unspecified; R91.8 Other nonspecific abnormal finding of lung field; E04.1 Nontoxic single thyroid nodule; R56.9 Unspecified convulsions; D75.89 Other specified diseases of blood and blood-forming organs; F32.9 Major depressive disorder, single episode, unspecified; Z79.82 Long term (current) use of aspirin
CPT/HCPCS: 31500; 36415; 36573; 36600; 70360; 70496; 70498; 70551; 71045; 74018; 74176; 74250; 76856; 78227; 80048; 80053; 80061; 80076; 80202; 80305; 80320; 81003; 82140; 82375; 82550; 82553; 82805; 82962; 83036; 83605; 83735; 83930; 83935; 84100; 84145; 84484; 85018; 85025; 86900; 86920; 87070; 87077; 87186; 92610; 92950; 93005; 93306; 93970; 94002; 94003; 99291; A6261; A9537; C1725; C1893; J1815; J1940; J1953; J2185; J2248; J2270; J2370; J2405; J2543; J2765; J2920; J3370; J3475; J3480; J3490; J7050; J7060; J7070; P9016; Q9963; Q9967; A4315; G0480